=== PATIENT | male | born 1960 | race Caucasian/White ===

== ENCOUNTER 2018-03-29 05:23 | Emergency (ER) | payer OTHER ==
--- NOTE | 2018-03-29 05:38 | EDM.PDOC ---
<Erica Hdez Elizabeth - Last Filed: 03/29/18 05:35> ED HPI GENERAL MEDICAL PROBLEM - General Chief Complaint: Chest Pain Stated Complaint: CHEST PAIN Time Seen by Provider: 03/29/18 05:36 Source of Information: Reports: Patient History Limitations: Reports: No Limitations - History of Present Illness Onset: Gradual Duration: Day(s): (1) Chest Pain Score (Numeric/FACES): 5 - Related Data Allergies Allergy/AdvReac Type Severity Reaction Status Date / Time celecoxib [From Celebrex] Allergy Blisters Verified 03/29/18 05:33 Home Meds: Home Meds Benazepril [Lotensin] 1 tab PO DAILY 03/29/18 [History] Cefdinir [Omnicef] 1 cap PO BID 03/29/18 [History] Fondaparinux Sodium [Arixtra] 7.5 mg SQ QAM #6 syringe 03/29/18 [Rx] Omeprazole 40 mg PO BID 03/29/18 [History] Orphenadrine [Norflex] 1 tab PO Q12H PRN #20 tab.er 03/29/18 [Rx] amLODIPine Besylate [Norvasc] 5 mg PO DAILY 03/29/18 [History] Course - Vital Signs Last Recorded V/S: Last Vital Signs Temp 36.5 C 03/29/18 05:28 Pulse 58 L 03/29/18 05:28 Resp 18 03/29/18 05:28 BP 138/66 03/29/18 05:28 Pulse Ox - Orders/Labs/Meds Orders: Active Orders 24 hr Category Date Time Status EKG Documentation Completion [RC] ASDIRECTED Care 03/29/18 05:37 Active Chest 2V [CR] Stat Exams 03/29/18 05:55 Taken CULTURE URINE [RM] Stat Lab 03/29/18 07:20 Received EKG 12 Lead [EK] Stat Ther 03/29/18 05:37 Ordered Labs: Laboratory Tests 03/29/18 03/29/18 03/29/18 Range/Units 05:40 05:40 07:20 WBC 6.07 (4.23-9.07) K/mm3 RBC 4.68 (4.63-6.08) M/mm3 Hgb 13.3 L (13.7-17.5) gm/L Hct 39.4 L (40.1-51.0) % MCV 84.2 (79.0-92.2) fl MCH 28.4 (25.7-32.2) pg MCHC 33.8 (32.2-35.5) g/dl RDW Std Deviation 38.6 (35.1-43.9) fL Plt Count 282 (163-337) K/mm3 MPV 9.4 (9.4-12.3) fl Neut % (Auto) 63.7 (34.0-67.9) % Lymph % (Auto) 19.9 L (21.8-53.1) % [place] % (Auto) 11.0 (5.3-12.2) % Eos % (Auto) 4.0 (0.8-7.0) Baso % (Auto) 0.7 (0.1-1.2) % Neut # (Auto) 3.87 (1.78-5.38) K/mm3 Lymph # (Auto) 1.21 L (1.32-3.57) K/mm3 [place] # (Auto) 0.67 (0.30-0.82) K/mm3 Eos # (Auto) 0.24 (0.04-0.54) K/mm3 Baso # (Auto) 0.04 (0.01-0.08) K/mm3 Sodium 139 (136-145) mEq/L Potassium 4.5 (3.5-5.1) mEq/L Chloride 104 (98-107) mEq/L Carbon Dioxide 29 (21-32) mEq/L Anion Gap 10.5 (5-15) BUN 22 H (7-18) mg/dL Creatinine 1.4 H (0.7-1.3) mg/dL Est Cr Clr Drug Dosing 57.51 mL/min Estimated GFR (MDRD) 52 (>60) mL/min BUN/Creatinine Ratio 15.7 (14-18) Glucose 104 (74-106) mg/dL Calcium 8.6 (8.5-10.1) mg/dL Total Bilirubin 0.3 (0.2-1.0) mg/dL AST 22 (15-37) U/L ALT 46 (16-63) U/L Alkaline Phosphatase 58 (46-116) U/L Troponin I < 0.017 (0.00-0.056) ng/mL Total Protein 6.9 (6.4-8.2) g/dl Albumin 3.1 L (3.4-5.0) g/dl Globulin 3.8 gm/dL Albumin/Globulin Ratio 0.8 L (1-2) Urine Color Red H (Yellow) Urine Appearance Turbid H (Clear) Urine pH 5.5 (5.0-8.0) Ur Specific [place] 1.025 (1.005-1.030) Urine Protein 2+ H (Negative) Urine Glucose (UA) Negative (Negative) Urine Ketones Negative (Negative) Urine Occult Blood 3+ H (Negative) Urine Nitrite Negative (Negative) Urine Bilirubin Negative (Negative) Urine Urobilinogen 0.2 (0.2-1.0) Ur Leukocyte Esterase Trace H (Negative) Urine RBC >100 H (0-5) /hpf Urine WBC 5-10 H (0-5) /hpf Ur Epithelial Cells 0-5 (0-5) /hpf Urine Bacteria Moderate H (FEW) /hpf Urine Mucus Not seen (FEW) /hpf Meds: Medications Discontinued Medications Generic Name Dose Route Start Last Admin Trade Name Freq PRN Reason Stop Dose Admin Enoxaparin Sodium 95 mg 03/29/18 07:36 Lovenox SUBCUT 03/29/18 07:37 ONETIME STA Enoxaparin Sodium 140 mg 03/29/18 08:06 03/29/18 09:08 Lovenox SUBCUT 03/29/18 08:07 140 mg ONETIME STA Administration Sodium Chloride 100 mls @ 4 mls/sec 03/29/18 06:30 Normal Saline IV 03/29/18 06:31 ONETIME ONE Iopamidol 100 ml 03/29/18 06:30 Isovue-370 (76%) IVPUSH 03/29/18 06:31 ONETIME ONE Orphenadrine Citrate 100 mg 03/29/18 08:44 Norflex PO 03/29/18 08:45 ONETIME STA Departure - Departure Disposition: Home, Self-Care 01 Clinical Impression: Pulmonary embolus, Coagulopathy Prescriptions: Fondaparinux Sodium [Arixtra] 7.5 mg SQ QAM #6 syringe Orphenadrine [Norflex] 1 tab PO Q12H PRN #20 tab.er PRN Reason: Muscle Spasm Instructions: Pulmonary Embolism, How and Where to Give Subcutaneous Injections Using a Prefilled Syringe Referrals: Harry Fink MD [Primary Care Provider] - Forms: ED Department Discharge Additional Instructions: You were seen in the emergency room for right-sided chest pain following a radical prostatectomy on 03/12/2018. Workup in the ER included blood work, a urinalysis, a chest x-ray, a CT angiogram of you r chest, and an ECG. Your blood work was unremarkable, however, your urine showed a lot of blood, as expected. A sample of your urine has been sent for culture. We recommend that you finish the antibiotic you're currently on, as prescribed. The CT angiogram of your chest found that you have bilateral pulmonary emboli. The cause of your right-sided chest pain is NOT due to the pulmonary emboli, but MAY be due to a muscle spasm. After discussion, you were given Lovenox 1.5 mg/kg in the ER, and taught how to give a subcutaneous injection. You have been started on the muscle relaxant Norflex. Prescriptions for the anticoagulant Arixtra and the muscle relaxant Norflex has been sent to [facility], [address] [place] [address], [address] from the hospital. Give yourself, or have your give you, an injection of Arixtra once each morning, starting tomorrow morning, 03/30/2018, as prescribed. Take one tablet of the muscle relaxant Norflex every 12 hours, starting this evening, 03/29/2018. Contact the office of your PCP, Dr. Fink, this morning, to make an appointment to see him as coming 04/01/2018, or 04/02/2018. At that appointment, he will decide what long-term anticoagulant is best for you. If any other problems, including difficulty giving the Arixtra injection, please do not hesitate to return to the ER. - My Orders Last 24 Hours: My Active Orders 03/29/18 07:20 CULTURE URINE [RM] Stat - Assessment/Plan Last 24 Hours: My Active Orders 03/29/18 07:20 CULTURE URINE [RM] Stat <Alek Byrd - Last Filed: 03/29/18 09:28> Past Medical History Cardiovascular History: Reports: High Cholesterol, Hypertension Gastrointestinal History: Reports: GERD (with [place] esophagus) - Past Surgical History HEENT Surgical History: Reports: Oral Surgery ([place] teeth extraction), Tonsillectomy EKG INTERPRETATION EKG Date: 03/29/18 Time: 05:31 Rhythm: Other (Sinus bradycardia) Rate (Beats/Min): 58 [employer]: Normal P-Wave: Present QRS: Normal ST-T: Normal QT: Normal Comparison: NA - No Prior EKG Course - Re-Assessments/Exams Free Text/Narrative Re-Assessment/Exam: 03/29/18 07:33 CT angiogram of the chest is read by Dr. Villanueva as: 1. Extensive pulmonary emboli throughout both lungs. Slight bowing of the intraventricular septum raising the possibility of right-sided heart strain. 2. Areas of atelectasis or developing scarring within both lung bases as well as lesser changes within the lingula and right middle lobe. 3. Small right sided pleural effusion. 03/29/18 07:39 2-view chest radiograph reviewed. Cardiac silhouette is within normal limits. No pulmonary vascular congestion. No obvious pleural effusion. No focal infiltrate, however, there are small areas of bibasilar atelectasis. No pneumothorax. Formal read per the Radiologist pending. 03/29/18 07:[address] Hdez. I have reviewed the patient's lab results, including the above CT angiogram of the chest and chest radiograph. I understand that the patient is status post a radical prostatectomy secondary to prostate cancer, that his HENNY drain was removed this past 03/26/2018, and that he now presents with right-sided chest pain. The CT scan findings extensive pulmonary emboli. I have ordered Lovenox 95 mg SQ. 03/29/18 08:01 The above was discussed with the patient and his . Before we give the Lovenox, I will try to contact Dr. Fink, to see what anticoagulant he would prefer long-term. If it is one of the newer agents, we can give that directly, and not to have to give Lovenox. If the decision cannot be made at this time, I can discharge the patient home and have him follow-up with Dr. Fink later today. 03/29/18 08:[address] De Los Santos at 08:02. He would like to start the patient on one of the newer anticoagulants, such as Eliquis, then have the patient follow-up this coming Sunday or Sunday, 04/01/2018 or 04/02/2018, at which time they can discuss long-term plans. 03/29/18 08:34 As the patient has a history of prostate cancer, current guidelines recommend 7 days of treatment with parenteral anticoagulation (Lovenox or Arixtra) for beginning oral Savaysa (Edoxaban), not Eliquis. This facility does not carry Arixra, however, we can give 1.5 mg/kg Lovenox SC this morning, then I can prescribe an additional 6 days of Arixtra. The patient can then follow-up with Dr. Fink on 04/01/2018, which time they can decide if they want to proceed with Savaysa or Coumadin. In the meantime, patient is complaining of right-sided chest pain, his presenting symptom. Chest pain from a pulmonary embolus is caused by pulmonary infarcts, which are not seen on this patient's chest radiograph or CT angiogram , therefore, it is not known why the patient has a right-sided chest pain. The patient believes it is likely musculoskeletal, which seems reasonable. I will start the patient on oral Norflex, and prescribed an additional 10 days. All the above was discussed at length with the patient and his , who are in agreement with the plan. The patient will be educated on how to give subcutaneous injections by Dulce BRAVO here today, however, if he or his have any problems over the weekend, they can always return to the ED for assistance. 03/29/18 09:27 Notified by clinical pharmacy that no pharmacy in town carries Arixtra, therefore I changed the prescription to Lovenox 140 mg SQ QAM, starting tomorrow morning, 03/30/2018, x 6 days. Departure - Departure Time of Disposition: 08:40 Condition: Fair - My Orders Last 24 Hours: My Active Orders 03/29/18 07:20 CULTURE URINE [RM] Stat - Assessment/Plan Last 24 Hours: My Active Orders 03/29/18 07:20 CULTURE URINE [RM] Stat
[2018-03-29] MEDS ORDERED: Iopamidol 755 Mg/ML 100 ML Bottle IVPUSH ONE (06:30)
[2018-03-29] MEDS ORDERED: Sodium Chloride 0.9% 100 ML IV ONE (06:30)
--- NOTE | 2018-03-29 07:19 | CT ---
CT chest Technique: Multiple axial sections through the chest were obtained. Study performed as a pulmonary angiogram protocol. Comparison: No prior chest imaging. Findings: Filling defects are seen within the distal left main pulmonary artery extending into the segmental left upper and left lower lung pulmonary arteries. Filling defect noted within the segmental right upper lung pulmonary artery. Subsegmental filling defects are also noted within both lower lungs. Filling defects are compatible with a fair amount of pulmonary emboli. Slight bowing to the left side of the intraventricular septum suggesting right-sided heart strain. Small right sided pleural effusion is seen. Mediastinum and hilar regions show no adenopathy or mass. Small portion of the visualized upper abdominal structures appear within normal limits. Areas of atelectasis or developing infarcts are seen within both lung bases as well as within the lingula and right middle lobe. Upper lungs are clear. Bone window settings were reviewed which appear within normal limits for the patient's age. Impression: 1. Extensive pulmonary emboli throughout both lungs. Slight bowing of the intraventricular septum raising the possibility of right-sided heart strain. 2. Areas of atelectasis or developing scarring within both lung bases as well as lesser changes within the lingula and right middle lobe. 3. Small right sided pleural effusion. Diagnostic code #5
[2018-03-29] MEDS ORDERED: Enoxaparin 100 MG/1 ML Syringe SUBCUT STA (07:36)
[2018-03-29] MEDS ORDERED: Enoxaparin 150 MG/1 ML Syringe SUBCUT STA (08:06)
[2018-03-29] MEDS ORDERED: Orphenadrine 100 MG Tab.ER PO STA (08:44)
--- NOTE | 2018-03-29 11:35 | CR ---
Chest: Two views of the chest were obtained. Comparison: No prior chest x-ray. Bibasilar atelectasis is seen. Upper lungs are clear. Heart size and mediastinum are normal. Bony structures are unremarkable. Impression: 1. Bibasilar atelectasis. Diagnostic code #2
== END 2018-03-29 09:00 | disposition home or self-care (01) ==
LOC: JD.ED 05:23
DX: I26.99 Other pulmonary embolism without acute cor pulmonale (principal); D68.9 Coagulation defect, unspecified; I10 Essential (primary) hypertension; Z88.8 Allergy status to other drugs, medicaments and biological substances; Z79.899 Other long term (current) drug therapy
CPT/HCPCS: 36415; 71046; 71275; 80053; 81001; 84484; 85025; 87086; 93005; 96372; 99285; J1650